=== PATIENT | female | born 1990 | race Two or more races ===

== ENCOUNTER 2024-07-28 22:44 | Emergency (ER) | payer MEDICAID, SELFPAY ==
[2024-07-28 22:45] VITALS: BMI 34.0
[2024-07-28 23:12] VITALS: BP 117/79; PULSE 71; RESP 20; TEMP 36.7; O2SAT 95
--- NOTE | 2024-07-28 23:50 | PD.EDABDPN ---
ED Abdominal Pain RME/HPI General Chief Complaint: Abdominal Pain Stated complaint: ABD PAIN Time seen by provider: 07/28/24 23:44 Arrival date/time: 07/28/24 22:44 33F with history of gallstones presents to ED with several days of RUQ/epigastric pain and N/V. Limitations: no limitations Related Data Previous Rx's ?Medication ?Instructions ?Recorded hydrocodone 5 mg-acetaminophen 325 1 tab PO TID #15 tabs 08/25/22 mg tablet ondansetron HCl 4 mg tablet 4 mg PO TID #15 tabs 08/25/22 acetaminophen 500 mg tablet 500 mg PO QID PRN fever or pain 07/29/24 #30 tabs naproxen 500 mg tablet 500 mg PO BID PRN pain #30 tabs 07/29/24 ondansetron 4 mg disintegrating 4 mg PO Q8H PRN nausea and 07/29/24 tablet vomiting #30 tabs Allergies Allergy/AdvReac Type Severity Reaction Status Date / Time No Known Allergies Allergy Verified 01/28/22 19:14 Review of Systems Review of Systems Systems Reviewed: All systems reviewed, normal except as documented Constitutional Constitutional: Reports system reviewed and no additional complaints, except as documented, Denies fever(s) and Denies headache(s) ENT Ears, Nose, Mouth, and Throat: Denies disequilibrium and Denies headache(s) Cardiovascular Cardiovascular: Reports system reviewed and no additional complaints, except as documented, Denies chest pain and Denies dyspnea Respiratory Respiratory: Reports system reviewed and no additional complaints, except as documented, Denies cough and Denies dyspnea Gastrointestinal Gastrointestinal: Reports system reviewed and no additional complaints, except as documented, Reports as per HPI, Reports abdominal pain, Reports nausea and Reports vomiting Neurologic Neurologic: Reports system reviewed and no additional complaints, except as documented, Denies confusion, Denies disequilibrium and Denies headache(s) Psychiatric Psychiatric: Denies confusion Past Medical History Social History SMOKING STATUS: Never smoker ED Exam General Limitations: Present no limitations General appearance: Present alert and in no apparent distress Head Head exam: Present atraumatic Eye Eye exam: Present normal appearance, PERRL and EOMI ENT ENT exam: Present normal exam, normal oropharynx and mucous membranes moist Neck Neck exam: Present normal inspection, full ROM and trachea midline Chest Chest inspection: Present normal inspection and symmetric chest wall rise Respiratory Respiratory exam: Present normal lung sounds bilaterally Cardiovascular Cardiovascular exam: Present regular rate, normal rhythm and normal heart sounds Abdominal Exam Abdominal exam: Present soft and normal bowel sounds Abdominal tenderness: Present RUQ Extremities Exam Extremities exam: Present normal inspection and full ROM Back Exam Back exam: Present normal inspection and full ROM Neurological Exam Neurological exam: Present alert, oriented X3 and CN II-XII intact Psychiatric Psychiatric exam: Present normal affect and normal mood Skin Skin exam: Present warm, dry, intact and normal color Course Quality Measures none Orders Category Date Time Status CT abdomen pelvis wo con Stat Exams 07/29/24 00:31 Taken US gall bladder Stat Exams 07/29/24 00:38 Taken CBC Stat Lab 07/28/24 23:45 Completed CMP [Comprehensive Metabolic Panel] Stat Lab 07/28/24 23:45 Completed Drug Screen,Urine Stat Lab 07/28/24 23:56 Completed HCG Qualitative,Urine Stat Lab 07/28/24 23:56 Completed Lipase Stat Lab 07/28/24 23:45 Completed UA [Urinalysis] Stat Lab 07/28/24 23:56 Completed HYDROcodone*/APAP 5/325 [Zebulon 5/325] Med 07/28/24 23:45 Discontinued 1 tab PO X1 ONE Ketorolac Inj [Toradol Inj] Med 07/29/24 03:50 Discontinued 60 mg IM X1 ONE Ondansetron Odt [Zofran Odt] Med 07/28/24 23:45 Discontinued 4 mg PO X1 ONE Vital Signs Vital signs: Vital Signs Temperature 98.1 F 07/28/24 23:12 Pulse Rate 71 07/28/24 23:12 Respiratory Rate 20 07/28/24 23:12 Blood Pressure 117/79 07/28/24 23:12 Pulse Oximetry (%) 95 07/28/24 23:12 Oxygen Delivery Method Room Air 07/28/24 23:12 O2 at 95% on RA and WNLs Abdominal Pain MDM MDM Narrative MDM Narrative:: 33F with history of gallstones presents to ED with several days of RUQ/epigastric pain and N/V. Physical exam reveals RUQ tenderness. Patient is afebrile, calm, and alert. Mild luekocytosis, likely reactive to N/V. US gallstones, but no cholecystitis. UA shows a lot of RBCs/WBCs, but patient denies dysuria. So CT was done, which was unremarkable. Patient revealed she recently switched from Depo to OCP, so she's had some breakthrough spotting, which would explain the UA, which was likely contaminated. Symptoms improved with meds. Validation Leader given. Patient data External records reviewed:: [facility] previous records Clinical information provided by:: patient Social determinants that could affect healthcare access:: none Patient has the following chronic illnesses:: none How is presenting disease/condition affected by chronic disease/condition?: no chronic disease Evaluation data The following diagnostics were reviewed and interpreted by me:: lab results and radiology exam(s) Lab and/or radiology exams considered but not ordered:: ordered Interpretation Summary: above Medications / Prescriptions Medications or Prescriptions considered but not ordered:: ordered Medication administrations:: Medication Administration History Discontinued Medications Hydrocodone Bitart/Acetaminophen (Hydrocodone/Apap 5/325 Tablet) 1 tab PO X1 ONE Stop: 07/28/24 23:46 Last Admin: 07/29/24 00:21 Dose: 1 tab Documented By: JEFF Ketorolac Tromethamine (Ketorolac Inj 60 Mg/2 Ml Vial) 60 mg IM X1 ONE Stop: 07/29/24 03:51 Last Admin: 07/29/24 04:10 Dose: 60 mg Documented By: JEFF Ondansetron HCl (Ondansetron Odt 4 Mg Tabrap) 4 mg PO X1 ONE; Protocol Stop: 07/28/24 23:46 Last Admin: 07/29/24 00:21 Dose: 4 mg Documented By: JEFF above Consultations Consultation(s) initiated? (list below): No Diagnosis Differential diagnosis abdominal pain: abdominal pain, acute appendicitis, calculus of kidney, constipation, diverticulitis, endometriosis, gastroenteritis, pancreatitis, small bowel obstruction and other (gallstones with biliary colic ) Most likely diagnosis given after review of the tests above:: gallstones with biliary colic Admission Indicated Admission indicated?: not indicated Admission Request Was there a request for admission?: No Disposition Plan Disposition Plan: Discharge Discharge Attestation Discharge Attestation: The patient and all family members were given an opportunity to ask questions and understood the discharge instructions. Discharge instructions specifically effects, indications for sooner follow up or return to the emergency department, and the expected course of current diagnosis. Patient condition: Stable Discharge Plan Plan Patient Disposition: HOME (Self Care) Disposition Comment: Stable Prescriptions/Referrals Prescriptions/Med Rec: New ondansetron 4 mg tablet,disintegrating 4 mg PO Q8H PRN (Reason: nausea and vomiting) Qty: 30 0RF naproxen 500 mg tablet 500 mg PO BID PRN (Reason: pain) Qty: 30 0RF acetaminophen 500 mg tablet 500 mg PO QID PRN (Reason: fever or pain) Qty: 30 0RF No Action hydrocodone-acetaminophen 5-325 mg tablet 1 tab PO TID MDD 3 Qty: 15 0RF ondansetron HCl 4 mg tablet 4 mg PO TID Qty: 15 0RF Referrals: No Primary/Family,Physician [Primary Care Provider] - In 1 week Problem List Clinical Impression: Gallstones Patient/Caregiver Discharge Instructions Education Materials: ED Gallstones with Biliary Colic Additional Instructions: Please follow-up with PCP within 24-48 hours and return immediately if symptoms worsen. If problem persists, see PCP for referral to general surgeon for elective gallbladder removal. Ibuprofen/Tylenol can be used simultaneously for greater fever/pain control. Print Language: Nicaraguan Stand Alone Forms: Patient Portal Info Letter TELMA/BLAKE Supervising Physician TELMA/BLAKE Supervising Physician: Dr. Jolly
[2024-07-29 00:07] LABS: Collection Type, Urine Clean Catch
[2024-07-29] MEDS: HYDROcodone/APAP 5/325 TABLET 1 TAB PO (00:21)
[2024-07-29] MEDS: ONDANSETRON ODT 4 MG TABRAP PO (00:21)
[2024-07-29 00:24] LABS: Bacteria,Urine 1+; Bilirubin,Urine Negative (Negative); Blood,Urine 3+ (Negative); Clarity,Urine Turbid (Clear/Hazy); Color,Urine Yellow (Lt Yel-Yel); Glucose, Urine Negative (Negative); Ketones,Urine 3+ (Negative); Leukocyte Esterase,Urine Positive (Negative); Nitrite,Urine Negative (Negative); Protein,Urine 1+ (Neg - Trace); RBC,Urine 543 /hpf (0-3); Specific Gravity,Urine 1.034 (1.001-1.035); Squamous Epithelial Cell,Urine 11 /hpf (0-5); WBC,Urine 42 /hpf (0-5)
[2024-07-29 00:25] LABS: Amphetamine/Methamp Scrn,U Negative (Negative); Barbiturate Screen,Urine Negative (Negative); Benzodiazepines Screen,Urine Negative (Negative); Benzoylecgonine Screen, Ur Negative (Negative); Fentanyl Screen,Urine Negative (Negative); Opiate Screen,Urine Negative (Negative); THC Screen,Urine Negative (Negative)
[2024-07-29 00:29] LABS: Basophils % (Auto) 0 % (0-2.5); Eosinophils # (Auto) 0.1 Thou/mm3 (0.0-0.5); Eosinophils % (Auto) 1 % (0-10); Immature Granulocytes % (Auto) 0 % (0-0); Immature Granulocytes Auto 0.03 Thou/mm3 (0.00-0.00); Lymphocytes # (Auto) 1.3 Thou/mm3 (1.0-4.8); Lymphocytes % (Auto) 10 % (10-50); Mean Corpuscular HGB Conc 31.6 g/dl (31.0-37.0); Mean Corpuscular Hemoglobin 23.7 pg (25.0-35.0); Mean Corpuscular Volume 75 fL (80-100); Monocytes # (Auto) 0.2 Thou/mm3 (0.0-0.8); Monocytes % (Auto) 1 % (0-12); Neutrophils # (Auto) 11.1 Thou/mm3 (1.8-7.7); Neutrophils % (Auto) 87 % (37-80); Nucleated Red Blood Cell % 0 /100 WBC (0); Platelet Count 328 Thou/mm3 (140-440); RDW Standard Deviation 35.5 fL (36.4-46.3); Red Blood Count 5.07 Miln/mm3 (4.00-5.20); White Blood Count 12.7 Thou/mm3 (3.6-11.0)
--- NOTE | 2024-07-29 00:31 | XR_ITS ---
Examination: CT abdomen and pelvis without contrast. Coronal 3-D reconstructions. Sagittal 2-D reconstructions. Date and time of exam:July 29, 2024 0110 hrs. Indications: Right-sided flank pain beginning one week ago CTDI: vol (mGy): 12.3 DLP: (mGycm): 664 Technique: Axial images of the abdomen have been obtained, 3 mm slice thickness Intravenous contrast material has not been administered. Low dose protocols were performed. One or more of the following dose reduction techniques were used; automated exposure control, adjustment of the mA and/or KV according to patient size, use of iterative reconstruction technique. Findings: Diffuse fatty infiltration throughout the liver Gallstones Spleen is not enlarged No pancreatic or adrenal mass No renal or ureteral calculi, no hydronephrosis Aorta normal size No bowel obstruction Normal appendix No diverticulitis No pelvic mass Contracted urinary bladder Osseous structures are intact Impression: Cholelithiasis No renal or ureteral calculi, no hydronephrosis Normal appendix
--- NOTE | 2024-07-29 00:38 | XR_ITS ---
Examination: Abdomen sonogram, Limited Date and time of exam: August 03, 2024 0139 hrs. Indications: Epigastric pain beginning one week ago Technique: Real-time jaimes scale transabdominal sonographic images of the upper abdomen obtained. Findings: Distended gallbladder 17 mm gallstone Normal gallbladder wall Normal common bile duct 0.2 cm Pancreatic head 2.3 cm Liver 16.6 cm fatty infiltration no focal liver lesions Normal hepatopedal portal venous flow Patent IVC Impression: Cholelithiasis, negative for cholecystitis
[2024-07-29 00:40] LABS: HCG Qualitative,Urine Negative
[2024-07-29 00:57] LABS: Alanine Aminotransferase 21 U/L (10-49); Albumin, Serum 4.7 gm/dL (3.5-5.0); Albumin/Globulin Ratio 1.5 (1.2-2.2); Alkaline Phosphatase 47 U/L (46-116); Anion Gap 8 (7-16); Aspartate Amino Transferase 19 U/L (0-34); BUN/Creatinine Ratio 16 Ratio (12-20); Bilirubin,Total 0.5 mg/dL (0.3-1.2); Blood Urea Nitrogen 11 mg/dL (9-23); Calcium 9.5 mg/dL (8.3-10.6); Calcium (Corrected) 9.5 mg/dL (8.5-10.1); Carbon Dioxide 25.7 mMol/L (20.0-31.0); Chloride 104 mMol/L (98-107); Creatinine (Component) 0.7 mg/dL (0.6-1.3); Estimated Creatinine Clearance 112.8 mL/min (>60); Globulin 3.2 gm/dL (2.3-3.5); Glucose 130 mg/dL (74-106); Lipase 29 U/L (12-53); Osmolality,Calculated 277 (275-295); Potassium 3.9 mMol/L (3.4-5.1); Sodium 138 mMol/L (136-145); Total Protein 7.9 gm/dL (5.7-8.2); eGFR > 60 See Note
--- NOTE | 2024-07-29 03:04 | PRELIM_ITS ---
Right upper quadrant abdominal ultrasound with doppler and wave doppler spectral analysis. July 29, 2024 at 0139 hours Clinical history: Right upper quadrant /epigastric pain. Technique: Grayscale and color flow images of the right upper quadrant are provided. Hepatic and portal veins were also imaged with color flow images. Comparison: None available at the time of this report. Findings: The liver demonstrates heterogenous increased echogenicity. No intrahepatic biliary ductal dilatation. Gallstones at the gallbladder neck. No gallbladder wall thickening or pericholecystic fluid is demonstrated. The common bile duct is normal in caliber at 2.4 mm. The pancreas is unremarkable to the extent visualized. The imaged portions of the right kidney are within normal limits. The portal vein is patent with hepatopetal flow and normal with Doppler spectral analysis. Barba sign is not available at the time of this report. The hepatic veins are patent. Impression: Liver steatosis. Heterogenous liver parenchyma, consider further evaluation to exclude cirrhosis. Gallstone at the gallbladder neck without ultrasound evidence of acute cholecystitis. Report Electronically Signed By: Boom Catalan 07/29/2024 3:02:28 AM [EST]
--- NOTE | 2024-07-29 03:39 | PRELIM_ITS ---
CT scan of the abdomen and pelvis without intravenous contrast (axial sections with sagittal and coronal reformats) July 29, 2024 at 0110 hours Clinical History: Rule out kidney stone; flank pain. Correlated with the prior ultrasound study dated July 29, 2024. Findings: The lung bases are clear. The liver, pancreas, spleen, kidneys and adrenals are unremarkable on this noncontrast study. Gallstones and distended gallbladder. No evidence of bowel obstruction. The appendix is within normal limits. There is no mesenteric or retroperitoneal adenopathy. The urinary bladder is nondistended, limited evaluation. There is no free fluid or free air. No acute fractures. Bilateral Bertolotti syndrome. The uterus and ovaries are within normal limits. Impression: Gallstones and distended gallbladder, if acute cholecystitis is clinically suspected consider correlation with HIDA scan. No evidence of kidney or ureteral stones. Report Electronically Signed By: Boom Catalan 07/29/2024 3:39:08 AM [EST]
[2024-07-29] MEDS: KETOROLAC INJ 60 MG/2 ML VIAL IM (04:10)
[2024-07-29 04:30] VITALS: BP 121/79; PULSE 72; RESP 17; TEMP 36.6; O2SAT 97
== END 2024-07-29 05:08 | disposition home or self-care (01) ==
PROVIDERS: Physician Assistant; Emergency Provider Emergency Medicine
DX: K80.70 Calculus of gallbladder and bile duct without cholecystitis without obstruction (principal)
CPT/HCPCS: 36415; 74176; 76705; 80053; 80307; 81001; 81025; 83690; 85025; 96372; 99284; J1885; Q0162; A9270